=== PATIENT | female | born 2005 | race Asian ===

== ENCOUNTER 2024-07-17 17:54 | Emergency (ER) | payer SELFPAY ==
[~2024-07-17] VITALS: Ht 160 cm; Wt 65.7 kg
[2024-07-17 17:56] VITALS: O2SAT 100
[2024-07-17 18:14] VITALS: BP 138/88; PULSE 76; RESP 16; TEMP 37; O2SAT 98
[2024-07-17 19:54] LABS: CLARITY URINE CLEAR (CLEAR); COLOR URINE ORANGE (YELLOW); GLUCOSE URINE NEGATIVE (NEGATIVE); KETONES URINE NEGATIVE (NEGATIVE); LEUKOCYTE ESTERASE URINE 2+ (NEGATIVE); NITRITE URINE POSITIVE (NEGATIVE); OCCULT BLOOD URINE NEGATIVE (NEGATIVE); PROTEIN URINE 2+ (NEGATIVE)
[2024-07-17 20:11] LABS: RBC URINE 0-2 /hpf (0-2)
[2024-07-17 20:12] LABS: BACTERIA URINE 4+; SQUAMOUS EPITHELIAL CELL URINE FEW /lpf (RARE/1+)
[2024-07-18] MEDS ORDERED: NITR-87 MT (17:17)
[2024-07-18] MEDS ORDERED: IBUP-2029 MT (17:17)
== END 2024-07-17 22:00 | disposition left against medical advice (07) ==
LOC: ER 17:54
DX: R30.0 Dysuria (principal); R10.30 Lower abdominal pain, unspecified; Z53.21 Procedure and treatment not carried out due to patient leaving prior to being seen by health care provider
CPT/HCPCS: 81003; 87077; 87186

== ENCOUNTER 2024-07-18 12:27 | Emergency (ER) | payer SELFPAY ==
[~2024-07-18] VITALS: Ht 160 cm; Wt 56.7 kg
[2024-07-18 12:28] VITALS: BP 123/79; PULSE 69; RESP 16; TEMP 37.1; O2SAT 100
[2024-07-18 15:20] LABS: CLARITY URINE TURBID (CLEAR); COLOR URINE RED (YELLOW); GLUCOSE URINE NEGATIVE (NEGATIVE); KETONES URINE NEGATIVE (NEGATIVE); LEUKOCYTE ESTERASE URINE 3+ (NEGATIVE); NITRITE URINE POSITIVE (NEGATIVE); OCCULT BLOOD URINE NEGATIVE (NEGATIVE); PROTEIN URINE 2+ (NEGATIVE); SPECIFIC GRAVITY URINE 1.027 (1.005-1.030)
[2024-07-18 15:39] LABS: SQUAMOUS EPITHELIAL CELL URINE 1+ /lpf (RARE/1+); WBC URINE TNTC /hpf (0-2)
[2024-07-18 15:40] LABS: BACTERIA URINE 4+; YEAST URINE NONE SEEN
[2024-07-18] MEDS ORDERED: IBUP-2029 MT (17:17)
[2024-07-18] MEDS ORDERED: NITR-87 MT (17:17)
== END 2024-07-18 17:22 | disposition home or self-care (01) ==
LOC: ER 12:38
DX: N39.0 Urinary tract infection, site not specified (principal); Z79.899 Other long term (current) drug therapy
CPT/HCPCS: 81003; 87077; 87186; 99283